=== PATIENT | male | born 1975 | race Two or more races ===

== ENCOUNTER 2025-04-11 09:26 | Emergency (ER) | payer BC ==
[~2025-04-11] VITALS: Ht 165.1 cm; Wt 81.6 kg
[2025-04-11] MEDS ORDERED: IBUPROFEN 600 MG TABLET ONE (09:59)
[2025-04-11 10:10] LABS: PLATELET COUNT (AUTO) 255 K/uL (150-450); RED BLOOD CELL COUNT(AUTO) 5.10 MIL/uL (4.5-6.0); RED CELL DISTRIBUTION WIDTH 13.7 % (11.5-15.0); WHITE BLOOD COUNT (AUTO) 8.4 K/uL (4.3-11.0)
[2025-04-11 10:14] LABS: APPEARANCE,URINE CLEAR (CLEAR); BLOOD, URINE 1+ Ery/uL (NEGATIVE); LEUKOCYTE ESTERASE ,URINE NEGATIVE (NEGATIVE); NITRITE, URINE NEGATIVE (NEGATIVE); UGLUCOSE NEGATIVE (NEGATIVE)
[2025-04-11 10:17] LABS: CALCIUM, SERUM 9.1 mg/dL (8.5-10.1); CREATININE 0.9 mg/dL (0.6-1.3); SODIUM SERUM 137.0 mmol/L (136-145); UREA NITROGEN, BLOOD 13.0 mg/dL (7-18)
[2025-04-11] MEDS: IBUPROFEN 600 MG TABLET PO ONE (10:17)
[2025-04-11 10:24] LABS: ASPARTATE AMINOTRANSFERASE 18.0 U/L (15-37); TOTAL PROTEIN, SERUM 7.7 g/dL (6.4-8.2)
[2025-04-11 10:39] LABS: ADD URINE CULTURE NO; SQUAMOUS EPITHELIAL CELL,UR Few /HPF (None Seen)
[2025-04-11] MEDS ORDERED: DOCU-141 PO (11:35)
[2025-04-11] MEDS ORDERED: AMOX-427 PO (11:35)
[2025-04-11 11:57] VITALS: BP 117/77; TEMP 98; O2SAT 97
== END 2025-04-11 11:57 | disposition home or self-care (01) ==
LOC: ER 09:34
DX: K57.32 Diverticulitis of large intestine without perforation or abscess without bleeding (principal)
CPT/HCPCS: 36415; 80048-TC; 80076-TC; 81001; 85025-TC